=== PATIENT | male | born 1960 | race Caucasian/White ===

== ENCOUNTER 2017-04-04 10:17 | Emergency (ER) | payer OTHER ==
[2017-04-04 10:45] VITALS: BP 114/56; PULSE 73; TEMP 98; BMI 29.0
[2017-04-04] MEDS ORDERED: KETOROLAC TROMETHAMINE 60 MG/2 ML VIAL IM ONE (11:52)
[2017-04-04] MEDS ORDERED: KETOROLAC TROMETHAMINE 60 MG/2 ML VIAL ONE (11:53)
--- NOTE | 2017-04-04 12:02 | PDOC ---
History of Present Illness - General Chief Complaint: Pain Stated Complaint: RT ANKLE PAIN Time Seen by Provider: 04/04/17 11:42 History Source: Patient - History of Present Illness Occurred: reports: yesterday Lower Extremity Pain Location: right: foot Past History - Past Medical History Allergies/Adverse Reactions: Allergies Allergy/AdvReac Type Severity Reaction Status Date / Time oseltamivir phosphate Allergy Rash Verified 04/04/17 10:41 [From Tamiflu] Home Medications: Ambulatory Orders Pseudoephedrine HCl 30 mg PO Q4H PRN #20 ml MDD 6 07/19/15 COPD: No - Suicide/Smoking/Psychosocial Hx Smoking History: Never smoked Hx Alcohol Use: No Drug/Substance Use Hx: No Substance Use Type: None Review of Systems - Review of Systems Constitutional: No: Chills, Fever Musculoskeletal: Yes: Joint Pain, Joint Swelling *Physical Exam - Vital Signs Last Vital Signs Temp Pulse Resp BP Pulse Ox 98.0 F 73 18 114/56 97 04/04/17 10:42 04/04/17 10:42 04/04/17 10:42 04/04/17 10:42 04/04/17 10:42 - Physical Exam General Appearance: Yes: Appropriately Dressed. No: Apparent Distress HEENT: positive: Normal Voice Neck: positive: Supple Respiratory/Chest: negative: Respiratory Distress Extremity: positive: Other (4x3cm area of erythema,minimal swelling and ttp, no open wounds or e/o tinea, pedal pulses intact) Integumentary: positive: Dry, Warm Neurologic: positive: Fully Oriented, Alert, Normal Mood/Affect Medical Decision Making - Medical Decision Making 04/04/17 11:55 57 yo male denies any past medical history here with atraumatic right foot pain. Patient states yesterday he developed pain, swelling and redness to right foot. Has been using BenGay with no relief. Patient denies any fever or chills. Patient states he had similar episode to same foot several months ago and was seen in ED and diagnosed with "inflammation" and was treated with over- the-counter medication. States symptoms resolved at some point. Does have a associate financial representative and was seen by Edmundo 2 months ago but was not having any symptoms then. States he was given an insole for his shoes which he has continued to use. Patient suspects that symptoms are secondary to how he tends to walk in his shoes. States he puts more pressure on the lateral aspect of R foot when walking and suspects that medial right foot rubs against inner aspect of his shoes causing symptoms. See exam Recurrent foot pain No recent trauma Given shoe insole by associate financial representative recently Stable w/ ~4x3 cm area of minimal swelling w/ minimal erythema and sig ttp to medial aspect of R foot, no e/o tinea pedis, doubt infxn, unlikely gout given location of symptoms -toradol in ED -will instruct to take otc motrin as needed, warm compresses and to f/u with podiatry this week *DC/Admit/Observation/Transfer Diagnosis at time of Disposition: Foot pain Qualifiers: Laterality: right Qualified Code(s): M79.671 - Pain in right foot - Discharge Dispostion Disposition: HOME Condition at time of disposition: Good - Referrals Referrals: Rosalio Marie [Primary Care Provider] - - Patient Instructions Printed Discharge Instructions: DI for Foot Pain Additional Instructions: The cause of your symptoms is most likely inflammation due to unclear cause. There is no concern for infection at this time or gout. Take 800 mg of Motrin every 6 hours as needed. You can also apply warm compresses to site several times a day. Please follow-up with your associate financial representative this week - Post Discharge Activity Forms/Work/School Notes: Back to Work
== END 2017-04-04 12:10 | disposition home or self-care (01) ==
LOC: JERFT 10:17
PROC: 3E0233Z Introduction of Anti-inflammatory into Muscle, Percutaneous Approach (ICD-10-PCS; principal; 2017-04-04)
DX: M79.671 Pain in right foot (principal)
CPT/HCPCS: 99281-25

== ENCOUNTER 2017-10-31 12:22 | Emergency (ER) | payer OTHER ==
[2017-10-31 12:56] VITALS: BP 128/73; PULSE 64; TEMP 98; BMI 28.6
--- NOTE | 2017-10-31 14:06 | PDOC ---
History of Present Illness - General Chief Complaint: Lightheaded Stated Complaint: Lightheaded Time Seen by Provider: 10/31/17 14:05 - History of Present Illness Initial Comments: 10/31/17 15:51 The patient is a 57 year old male who denies any significant PMH who presents for evaluation of dizziness. The patient reports a 1 day history of dizziness/ lightheadedness that has been persistent and worse with movement of his head with associated nausea prompting his presentation to the ED for further evaluation. He denies similar symptoms in the past and also notes some mild SOB. He otherwise denies fevers, chills, chest pain, vomiting, abdominal pain, numbness, tingling, weakness, or changes with urination or bowel movements. Past History - Past Medical History Allergies/Adverse Reactions: Allergies Allergy/AdvReac Type Severity Reaction Status Date / Time oseltamivir phosphate Allergy Rash Verified 10/31/17 12:56 [From Tamiflu] Home Medications: Ambulatory Orders Meclizine HCl [Antivert -] 25 mg PO TID PRN #21 tablet 10/31/17 COPD: No - Immunization History Immunization Up to Date: No - Suicide/Smoking/Psychosocial Hx Smoking History: Never smoked Have you smoked in the past 12 months: No Information on smoking cessation initiated: No Hx Alcohol Use: No Drug/Substance Use Hx: No Substance Use Type: None Review of Systems - Review of Systems Comments:: 10/31/17 15:54 Constitutional: No fevers, chills, fatigue, malaise HEENT: No Rhinorrhea, nasal congestion, visual changes Cardiovascular: Lightheadedness. No chest pain, syncope, palpitations, Respiratory: SOB, No Cough, Hemoptysis, Gastrointestinal: Nausea, No Abdominal pain, Vomiting, Constipation, Diarrhea, Melena Genitourinary: No Dysuria, Frequency, Urgency, Hesitancy, Hematuria, Flank pain Musculoskeletal: No Myalgia, arthralgia Skin: No rashes, itching, bruising, pallor Neurologic: Dizziness. No Headache, Numbness, Weakness, or Tingling Psychiatric: No Hallucinations. No SI or HI *Physical Exam - Vital Signs Last Vital Signs Temp Pulse Resp BP Pulse Ox 98.0 F 64 16 128/73 100 10/31/17 12:54 10/31/17 12:54 10/31/17 12:54 10/31/17 12:54 10/31/17 12:54 - Physical Exam Comments: 10/31/17 15:54 General Appearance: Nourished. No Apparent Distress HEENT: EOMI, SHEKHAR. Horizontal nystagmus noted on exam. No Pharyngeal Erythema, Tonsillar Exudate, Tonsillar Erythema Neck: No Cervical Lymphadenopathy Respiratory/Chest: Lungs Clear, Normal Breath Sounds. No Crackles, Rales, Rhonchi, Wheezing Cardiovascular: Regular Rhythm, Regular Rate. No Murmur, Gallops, Rubs Gastrointestinal/Abdominal: Normal Bowel Sounds, Soft. No Guarding, Rebound, Tenderness Musculoskeletal: No CVA Tenderness Extremity: Normal Capillary Refill Integumentary: Normal Color, Dry, Warm Neurologic: tongue and groove machine feeder II-XII NML intact, Fully Oriented, Alert, Normal Mood/Affect, Normal Response, Motor Strength 5/5. Normal Finger to Nose and Heel to [facility] ED Treatment Course - LABORATORY CBC & Chemistry Diagram: 10/31/17 15:15 10/31/17 15:15 Medical Decision Making - Medical Decision Making 10/31/17 15:55 The patient is a 57 year old male who denies any significant PMH who presents for evaluation of dizziness. Differential includes but is not limited to: ACS, Vertigo, Intracranial process, Infectious, Metabolic Derangement. Given the patient's history and physical exam, we will obtain a cbc, cmp, troponin, ekg, and head ct to evaluate further for possible etiologies. We will treat with meclazine and continue to monitor and reassess while here in the ED. 10/31/17 20:03 CBC, cmp, troponin are unremarkable. Head CT is unremarkable as read by our radiologist. The patient reports improvement in his symptoms. We are comfortable discharging the patient home on meclazine with primary care provider follow up. We discussed the results, plan, and return precautions with the patient who voiced understanding and is agreeable with the plan. *DC/Admit/Observation/Transfer Diagnosis at time of Disposition: Dizziness - Discharge Dispostion Disposition: HOME Condition at time of disposition: Stable Decision to Admit order: No - Prescriptions Prescriptions: Meclizine HCl [Antivert -] 25 mg PO TID PRN #21 tablet PRN Reason: For Dizziness - Referrals Referrals: Ephraim Emmanuel MD [Primary Care Provider] - - Patient Instructions Printed Discharge Instructions: DI for Benign Paroxysmal Positional Vertigo Additional Instructions: Please return to the ER if you experience concerning or worsening symptoms including worsening headache, chest pain, or weakness. Your lab results and head CT were normal here in the ER. We have sent a prescription to your pharmacy for meclazine that you should take as needed for dizziness. Please call to schedule a follow up appointment with your primary care provider within 2-3 days to discuss your ER visit and further management of your symptoms. Print Language: FRISIAN - Post Discharge Activity Forms/Work/School Notes: Back to Work
--- NOTE | 2017-10-31 14:15 | PDOC ---
Attending Attestation - Resident Resident Name: Richar Mayfield - ED Attending Attestation I have performed the following: I have examined & evaluated the patient, The case was reviewed & discussed with the resident, I agree w/resident's findings & plan, Exceptions are as noted - HPI HPI: 10/31/17 14:26 57 yo M denies past medical history He presents to the ER with a complaint of lightheadedness and dizziness which began several days ago No fevers or chills No headache, no neck pain No weakness or numbness - Physicial Exam PE: 10/31/17 14:33 GENERAL: The patient is in no acute distress. EYES: PERRLA, EOMI, sclera anicteric, conjunctiva clear. ENT: Ears normal, nares patent, oropharynx clear without exudates. Moist mucous membranes. NECK: Normal range of motion, supple LUNGS: Breath sounds equal, clear to auscultation bilaterally. HEART:Regular rate and rhythm, normal S1 and S2 without murmur, rub or gallop. ABDOMEN: Soft, nontender, normoactive bowel sounds. EXTREMITIES: Normal range of motion NEUROLOGICAL: Cranial nerves II through XII grossly intact. Normal speech. No focal neurological deficits. MUSCULOSKELETAL: Back non-tender to palpation SKIN: Warm, Dry, normal turgor, no rashes or lesions noted. - Medical Decision Making 10/31/17 14:34 57 yo F s/p episode of dizziness, denies vertigo but her symptoms worsen with moving his head to the side in bed Will do: Labs CT head EKG Re assess 10/31/17 16:15 Laboratory Tests 10/31/17 10/31/17 10/31/17 15:15 15:15 15:15 WBC 7.0 Hgb 15.5 Hct 45.3 Plt Count 167 BUN 11 Creatinine 0.8 Random Glucose 109 H Creatine Kinase 79 Troponin I < 0.02 EKG: Sinus bradycardia rate of 52 bpm, axis nml, no st elevation or depression, t waves upright CT pending Reassessment pending Clinical impression: vertigo, initial presentation
[2017-10-31] MEDS ORDERED: MECLIZINE HCL 25 MG TABLET (FP) PO ONE (14:27)
[2017-10-31] MEDS ORDERED: MECLIZINE HCL 25 MG TABLET (FP) ONE (15:01)
[2017-10-31 15:30] LABS: BASO % 0.9 % (0-2.0); EOS % 2.1 % (0-4.5); HEMATOCRIT 45.3 % (35.4-49); HEMOGLOBIN 15.5 GM/dL (11.7-16.9); LYMPH % 19.6 % (8-40); MCH 30.7 pg (25.7-33.7); MCHC 34.2 g/dl (32.0-35.9); MEAN PLT VOLUME 9.4 fl (7.5-11.1); MONO % 4.7 % (3.8-10.2); NEUT % 72.7 % (42.8-82.8); PLATELET COUNT 167 K/MM3 (134-434); RBC 5.03 M/mm3 (4.00-5.60); RDW 13.5 % (11.9-15.9)
[2017-10-31 15:49] LABS: ALBUMIN 4.2 g/dl (3.4-5.0); ALK PHOS 70 U/L (45-117); ANION GAP 9 MMOL/L (8-16); BILIRUBIN,TOTAL 0.5 mg/dL (0.2-1.0); BLOOD UREA NITROGEN 11 mg/dL (7-18); CALCIUM 9.4 mg/dL (8.5-10.1); CHLORIDE 104 mmol/L (98-107); CO2 29 mmol/L (21-32); CREATININE 0.8 mg/dL (0.7-1.3); GLUCOSE,RANDOM 109 mg/dL (74-106); POTASSIUM 4.6 mmol/L (3.5-5.1); SGOT/AST 17 U/L (15-37); SGPT/ALT 29 U/L (12-78); SODIUM 142 mmol/L (136-145); TOT PROT 7.6 g/dl (6.4-8.2)
--- NOTE | 2017-11-01 12:35 | EKG ---
Test Reason : Blood Pressure : / mmHG Vent. Rate : 052 BPM Atrial Rate : 052 BPM P-R Int : 190 ms QRS Dur : 088 ms QT Int : 388 ms P-R-T Axes : 049 016 030 degrees QTc Int : 360 ms SINUS BRADYCARDIA OTHERWISE NORMAL ECG NO PREVIOUS ECGS AVAILABLE Confirmed by DIANA REZA MD ([id number]) on 11/01/2017 12:35:08 PM Referred By: Confirmed By:DIANA REZA MD
== END 2017-10-31 18:00 | disposition home or self-care (01) ==
LOC: JER 12:22
DX: H81.10 Benign paroxysmal vertigo, unspecified ear (principal)
CPT/HCPCS: 36415; 70450-TC; 80053; 82550; 84484; 85025; 93005; 93010; 99282-25

== ENCOUNTER 2018-09-27 13:58 | Emergency (ER) | payer OTHER ==
[2018-09-27 14:14] VITALS: BP 125/71; PULSE 69; TEMP 98.5; BMI 28.1
--- NOTE | 2018-09-27 14:14 | PDOC ---
Rapid Medical Evaluation Chief Complaint: Pain Time Seen by Provider: 09/27/18 14:13 Medical Evaluation: Allergies Allergy/AdvReac Type Severity Reaction Status Date / Time oseltamivir phosphate Allergy Rash Verified 10/31/17 12:56 [From Tamiflu] 09/27/18 14:13 I have performed a brief in-person evaluation of this patient. The patient presents with a chief complaint of: RUE pain, worse at elbow, after lifting something heavy. NO fall, no direct impact to RUE. No numbness/tingling. Pertinent physical exam findings: Pt in no apparent distress. I have ordered the following: Ibuprofen The patient will proceed to the ED for further evaluation. Discharge Disposition - Diagnosis Elbow pain Qualifiers: Laterality: right Qualified Code(s): M25.521 - Pain in right elbow - Referrals - Patient Instructions - Post Discharge Activity
[2018-09-27] MEDS ORDERED: IBUPROFEN 600 MG TABLET (FP) PO ONE ×2 (14:15→14:29)
--- NOTE | 2018-09-27 14:30 | PDOC ---
History of Present Illness - General Chief Complaint: Pain Stated Complaint: LT. ELBOW PAIN Time Seen by Provider: 09/27/18 14:13 History Source: Patient - History of Present Illness Initial Comments: 09/27/18 14:41 58 year old male reports that while he was lifting something heavy at work noted a pop to right elbow early this morning. patient reports having pain to the right elbow since then. full rom no deformity noted. Past History - Past Medical History Allergies/Adverse Reactions: Allergies Allergy/AdvReac Type Severity Reaction Status Date / Time oseltamivir phosphate Allergy Rash Verified 09/27/18 14:14 [From Tamiflu] Home Medications: Ambulatory Orders Meclizine HCl [Antivert -] 25 mg PO TID PRN #21 tablet 10/31/17 COPD: No - Immunization History Immunization Up to Date: No - Suicide/Smoking/Psychosocial Hx Smoking History: Never smoked Have you smoked in the past 12 months: No Information on smoking cessation initiated: No Hx Alcohol Use: No Drug/Substance Use Hx: No Substance Use Type: None Review of Systems - Review of Systems Able to Perform ROS?: Yes Is the patient limited Romansh proficient: No HEENTM: No: Symptoms Reported, See HPI, Eye Pain, Blurred Vision, Tearing, Recent change in vision, Double Vision, Cataracts, Ear Pain, Ocular Prothesis, Ear Discharge, Nose Pain, Nose Congestion, Tinnitus, Nose Bleeding, Hearing Loss , Throat Pain, Throat Swelling, Mouth Pain, Dental Problems, Difficulty Swallowing, Mouth Swelling, Other Musculoskeletal: Yes: Other (right elbow pain) *Physical Exam - Vital Signs Last Vital Signs Temp Pulse Resp BP Pulse Ox 98.5 F 69 17 125/71 100 09/27/18 14:12 09/27/18 14:12 09/27/18 14:12 09/27/18 14:12 09/27/18 14:12 - Physical Exam General Appearance: Yes: Appropriately Dressed Extremity: positive: Normal Capillary Refill, Other (full rom. no deformity. able extent arm ) Integumentary: positive: Normal Color, Dry, Warm Neurologic: positive: Fully Oriented, Alert Progress Note - Progress Note Progress Note: A: right elbow P: xray ibuprofen *DC/Admit/Observation/Transfer Diagnosis at time of Disposition: Elbow pain Qualifiers: Laterality: right Qualified Code(s): M25.521 - Pain in right elbow - Discharge Dispostion Disposition: HOME - Referrals Referrals: Rolly Brennan DO [Staff Physician] - Call tomorrow - Patient Instructions Printed Discharge Instructions: DI for Elbow Pain Additional Instructions: keep in sling ICE for 24 hours follow up with your doctor as soon as possible an orthopedic referral was given to you. if symptoms persist please follow up with orthopedic in 1 week. - Post Discharge Activity Forms/Work/School Notes: Back to Work
== END 2018-09-27 15:00 | disposition home or self-care (01) ==
LOC: JERFT 13:58
DX: S59.801A Other specified injuries of right elbow, initial encounter (principal); X50.0XXA Overexertion from strenuous movement or load, initial encounter; Y93.89 Activity, other specified; Y92.69 Other specified industrial and construction area as the place of occurrence of the external cause; Y99.0 Civilian activity done for income or pay
CPT/HCPCS: 73070-TC-RT-FY; 99282-25